=== PATIENT | male | born 1940 | race Asian ===

== ENCOUNTER → 2019-03-28 | Outpatient (CLI) | payer BC, MEDICARE, OTHER ==
--- NOTE | 2019-03-28 08:23 | RAD ---
EXAM: ABDOMINAL ULTRASOUND. HISTORY: Abdominal pain. COMPARISON: 01/20/2016. FINDINGS: Sonographic evaluation of the abdomen was performed. Increased hepatic parenchymal echogenicity is consistent with steatosis. There are no focal lesions. The spleen measures 9.0 cm. The gallbladder is unremarkable without evidence of stones, wall thickening or pericholecystic fluid. There is no sonographic Duff sign. The common duct measures 3 mm. The visualized portions of the head of the pancreas reveal no abnormality. The right kidney measures 10.2 cm. Cortical thickness and echogenicity are preserved. There is no hydronephrosis. The left kidney measures 10.3 cm. Cortical thickness and echogenicity are preserved. There is no hydronephrosis. A benign cyst at the lower pole measures 1.8 cm. The visualized portions of the abdominal aorta and inferior vena cava are grossly patent and normal in caliber. IMPRESSION: 1. Diffuse hepatic steatosis. 2. No cause for pain is identified. Electronically signed by: Mesha Spring MD (03/28/2019 8:20 AM) [facility]
== END | disposition home or self-care (01) ==
LOC: US 07:17
PROVIDERS: ATTEND Family Medicine
DX: K76.0 Fatty (change of) liver, not elsewhere classified (principal); N28.1 Cyst of kidney, acquired
CPT/HCPCS: 76700

== ENCOUNTER → 2019-05-03 | Outpatient (CLI) | payer BC ==
[~2019-05-03] MED LIST: BARIUM SULFATE 60% 355 ML SUSP PO ONE; BARIUM SULFATE 96% 397 GM ENEMA. PR ONE; SIMETHICONE/SOD BICARB/CITRIC ACID PACKET. PO ONE
--- NOTE | 2019-05-03 14:02 | RAD ---
Examination: ESOPHAGRAM/BARIUM SWALLOW History: Dysphagia Comparison/Correlation: None Findings: Air contrast esophagram was performed. Fluoroscopy was utilized for 1.8 minutes. Mild presbyesophagus noted. There is no esophageal stricture, or diverticulum. Normal distention of the esophagus at the cervical level as well as thoracic levels present. A total of 18 images were obtained. Prone drinking views were obtained. Small sliding hiatal hernia is present. No reflux visualized on this exam. Tortuosity of the distal thoracic esophagus is present. Impression: No suspicious filling defects or strictures. Mild presbyesophagus. Small sliding hiatal hernia. Electronically signed by: Wade Cohn MD (05/03/2019 1:59 PM) [facility]
== END | disposition home or self-care (01) ==
LOC: RAD 12:50
PROVIDERS: ATTEND Physician Assistant
DX: K22.8 Other specified diseases of esophagus (principal); K44.9 Diaphragmatic hernia without obstruction or gangrene
CPT/HCPCS: 74220